=== PATIENT | female | born 1980 | race Hispanic/Latino ===

== ENCOUNTER 2018-04-08 16:00 | Emergency (ER) | payer SELFPAY ==
[2018-04-08] MEDS ORDERED: NA CHLORIDE 0.9% 1,000 ML ONE (17:05)
[2018-04-08 17:15] LABS: Protime INR 1.07
[2018-04-08 17:17] LABS: Absolute Lymphocytes (CBC) 1.3 K/uL (0.7-4.9); Absolute Monocytes 0.4 K/uL (0.1-1.3); Absolute Neutrophil 11.7 K/uL (1.8-8.0); Basophils % 0.3 % (0-1.3); Hematocrit 37.4 % (36.0-45.0); Lymphocytes % 9.6 % (15.3-44.8); MCH 21.2 pg (27.0-35.0); MCV 68.8 fL (80-100); Monocytes % 3.1 % (3.3-12.3); RBC Red Blood Cell Count 5.44 M/uL (3.86-4.86)
[2018-04-08 17:25] LABS: ALT/SGPT 19 U/L (12-78); AST/SGOT 9 U/L (15-37); Albumin 3.8 g/dL (3.4-5.0); Alkaline Phosphatase 71 U/L (45-117); BUN Blood Urea Nitrogen 13 mg/dL (7-18); Bicarbonate 23 mmol/L (21-32); Bilirubin Direct < 0.1 mg/dL (0-0.2); Bilirubin Total 0.3 mg/dL (0.2-1.0); Glucose Level 302 mg/dL (74-106); Magnesium 2.1 mg/dL (1.8-2.4); NT PRO-BNP 40 pg/mL (<125); Potassium 3.9 mmol/L (3.5-5.1); Protein, Total 8.2 g/dL (6.4-8.2); Sodium Level 138 mmol/L (136-145); Troponin (Emerg Dept Use Only) < 0.02 ng/mL (0.0-0.045)
[2018-04-08 17:52] LABS: Blood Morphology Comment NOT SEEN (NOT SEEN); Hypochromasia 1+; Platelet Estimate ADEQ; Urine White Blood Cell Casts OK
[2018-04-08 18:13] LABS: Urine Blood 2+ (NEG); Urine Glucose 2+ (NEG); Urine Protein NEGATIVE (NEG); Urine pH 5.5 (5.0-7.0)
--- NOTE | 2018-04-08 18:13 | RAD REPORT ---
EXAM DESCRIPTION: RAD - Chest Single View - 04/08/2018 6:05 pm CLINICAL HISTORY: PALPITATIONS Chest pain. COMPARISON: Chest Single View dated 02/05/2017; Chest Single View dated 12/18/2016 FINDINGS: Portable technique limits examination quality. The lungs are grossly clear. The heart is normal in size. No displaced fractures. IMPRESSION: No acute intrathoracic process suspected.
--- NOTE | 2018-04-08 18:20 | RAD REPORT ---
EXAM DESCRIPTION: CT - Chest For Pe Angio - 04/08/2018 6:10 pm CLINICAL HISTORY: Chest pain. Tachycardia;Palpitations COMPARISON: Chest For Pe Angio dated 12/18/2016 TECHNIQUE: CT angiogram of the pulmonary arteries was performed with MIP. All CT scans are performed using dose optimization technique as appropriate and may include automated exposure control or mA/KV adjustment according to patient size. FINDINGS: No evidence of pulmonary thromboembolism. No acute aortic finding demonstrated. The lungs are clear. No significant pericardial or pleural fluid. No concerning bony finding. IMPRESSION: No evidence of pulmonary thromboembolism. No acute lung findings.
[2018-04-08 18:39] LABS: Barbiturates NEGATIVE (NEGATIVE); Benzodiazepines NEGATIVE (NEGATIVE); Cocaine NEGATIVE (NEGATIVE); METHAMPHETAM NEGATIVE (NEGATIVE); Methadone NEGATIVE (NEGATIVE); Opiates NEGATIVE (NEGATIVE); Phencyclidine NEGATIVE (NEGATIVE); THC Cannibis NEGATIVE (NEGATIVE)
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
--- NOTE | 2018-04-09 05:13 | EKG ---
Test Date: 2018-04-08 Test Time: 16:39:04 [employer] Technical Developer: JOAQUÍN MEASUREMENT RESULTS: Intervals: Rate: 131 CO: 138 QRSD: 78 QT: 306 QTc: 451 Maddock: P: 49 CO: 138 QRS: 120 T: 37 INTERPRETIVE STATEMENTS: Sinus tachycardia Right axis Abnormal ECG Compared to ECG 02/05/2017 11:25:41 Sinus rhythm no longer present Electronically Signed On 04-09-18 05:13:03 DRAFTER APPRENTICE by Salomón Johnson
== END 2018-04-08 19:12 | disposition home or self-care (01) ==
LOC: ER 16:00
DX: F43.0 Acute stress reaction (principal); E11.65 Type 2 diabetes mellitus with hyperglycemia; F17.210 Nicotine dependence, cigarettes, uncomplicated
CPT/HCPCS: 36415; 71045; 71275; 80048; 80076; 80307; 81003; 81025; 83735; 83880; 84484; 85025; 85610; 93005; 96360; 96361; 99285; J7030; Q9967